=== PATIENT | male | born 1980 | race Caucasian/White ===

== ENCOUNTER 2019-08-11 13:06 | Emergency (ER) | payer SELFPAY ==
[2019-08-11] MEDS ORDERED: Lorazepam 2 MG/ML VIAL ONE (13:21)
[2019-08-11 13:26] LABS: #Basophils 0.1 thou/uL (0.0-0.2); #Eosinphils 0.1 thou/uL (0.0-0.7); #Lymphocytes 2.3 thou/uL (1.20-3.40); #Monocytes 1.2 thou/uL (0.11-0.59); #Neutrophils 8.8 thou/uL (1.40-6.50); %Basophils 0.9 % (0.0-1.0); %Eosinophils 0.9 % (0.0-10.0); %Monocytes 9.8 % (0.0-10.0); %Neutrophils 70.4 % (42.0-75.0); Hemoglobin 16.5 g/dL (14.0-18.0); Mean Corpuscular HGB CONC 33.2 g/dL (32.0-36.0); Mean Corpuscular Hemoglobin 29.4 pg (27.0-31.0); Mean Corpuscular Volume 88.7 fL (78.0-98.0); Mean Platelet Volume 7.1 fL (7.4-10.4); Platelet Count 355 thou/uL (130-400); RBC Distribution Width 10.6 % (11.5-14.5); Red Blood Cell (RBC) Count 5.61 mill/uL (4.70-6.10); White Blood Cell (WBC) Count 12.5 thou/uL (4.8-10.8)
[2019-08-11 13:30] LABS: RBC Morphology Normal
[2019-08-11 13:40] LABS: Acetaminophen Less than 6.0 mcg/mL (10.0-30.0); Alcohol Less than 10 mg/dL (Less than 10); Salicylate Less than 8.0 mg/dL (15.0-30.0)
[2019-08-11 13:42] LABS: ALT (SGPT) 51 U/L (8-55); AST (SGOT) 63 U/L (5-34); Albumin 4.5 g/dL (3.5-5.0); Alkaline Phosphatase 132 U/L (40-110); Anion Gap 16 mmol/L (10-20); BUN (Urea Nitrogen) 20 mg/dL (8.9-20.6); Bilirubin, Total 0.6 mg/dL (0.2-1.2); Calc. Creatinine Clearance 0 mL/min (70-130); Calcium 9.5 mg/dL (7.8-10.44); Carbon Dioxide 26 mmol/L (22-29); Chloride 103 mmol/L (98-107); Estimated GFR-MDRD 83; Globulin 2.8 g/dL (2.4-3.5); Glucose 119 mg/dL (70-105); Lipase 882 U/L (8-78); Potassium 4.6 mmol/L (3.5-5.1); Protein, Total 7.3 g/dL (6.0-8.3); Sodium 140 mmol/L (136-145)
[2019-08-11 14:20] LABS: Bilirubin Negative (Negative); Blood, Urine Negative (Negative); Clarity Clear (Clear); Glucose, Urine (Dipstick) Negative (Negative); Leukocyte Negative (Negative); Nitrite Negative (Negative); Protein, Urine (Dipstick) Negative (Neg-Trace); Urobilinogen 0.2 mg/dL (Less than 2)
--- NOTE | 2019-08-11 14:27 | CT ---
CT Abdomen Pelvis WO Con History: Abdominal pain. Pancreatitis Comparison: CT abdomen pelvis April 2011 Findings: Lung bases are clear. No pericardial effusion. There is cholelithiasis without cholecystiti s. Mild dilatation of the renal calyces and renal pelvis to the ureterovesicular junction versus uretera l size is within normal. No obstructing ureteral calculus. Punctate right superior renal calculus. 2 x 2 mm right inferior renal calculus. There is a to a 2 mm calculus interpolar left kidney. 2 x 3 mm calculus superior pole left kidney. 5 x 2 mm calculus versus 2 closely adjoining smaller calculi inferior pole left renal collecting system. No acute osseous abnormality. No dilated loops of large or small bowel. Noncontrast evaluation of the spleen, pancreas, adrenal glands are unremarkable. Impression: 1. Cholelithiasis without evidence of cholecystitis. 2. Evidence of chronic left UPJ obstruction with mild dilatation of the left renal collecting system including the pelvis and calyces. 3. Nonobstructive bilateral renal calculi. No ureteral calculus.
[2019-08-11 14:33] LABS: Amphetamine Detected (NotDetected); Barbiturates Screen Not Detected (NotDetected); Benzodiazepine Screen Not Detected (NotDetected); Cocaine Metabolite Screen Not Detected (NotDetected); Medtox Control Line Valid? VALID (VALID); Methadone Not Detected (NotDetected); Methamphetamine Not Detected (NotDetected); Opiate Screen Detected (NotDetected); Oxycodone Screen Not Detected (NotDetected); Phencyclidine (PCP) Not Detected (NotDetected); THC/Cannabinoid Screen Detected (NotDetected); Tricyclic Screen Not Detected (NotDetected)
[2019-08-11] MEDS ORDERED: Fentanyl 100 MCG/2 ML VIAL ONE (15:01)
[2019-08-11 19:24] LABS: #Basophils 0.1 thou/uL (0.0-0.2); #Eosinphils 0.1 thou/uL (0.0-0.7); #Lymphocytes 2.5 thou/uL (1.20-3.40); #Monocytes 0.7 thou/uL (0.11-0.59); %Basophils 1.5 % (0.0-1.0); %Eosinophils 1.1 % (0.0-10.0); %Lymphocytes 33.5 % (21.0-51.0); %Monocytes 9.7 % (0.0-10.0); %Neutrophils 54.3 % (42.0-75.0); Hemoglobin 15.4 g/dL (14.0-18.0); Mean Corpuscular HGB CONC 33.2 g/dL (32.0-36.0); Mean Corpuscular Hemoglobin 29.6 pg (27.0-31.0); Mean Corpuscular Volume 89.4 fL (78.0-98.0); Platelet Count 306 thou/uL (130-400); White Blood Cell (WBC) Count 7.4 thou/uL (4.8-10.8)
[2019-08-11 19:34] LABS: ALT (SGPT) 99 U/L (8-55); AST (SGOT) 92 U/L (5-34); Albumin 3.7 g/dL (3.5-5.0); Alkaline Phosphatase 120 U/L (40-110); Anion Gap 10 mmol/L (10-20); BUN (Urea Nitrogen) 15 mg/dL (8.9-20.6); Bilirubin, Total 0.8 mg/dL (0.2-1.2); Calc. Creatinine Clearance 0 mL/min (70-130); Calcium 8.3 mg/dL (7.8-10.44); Carbon Dioxide 27 mmol/L (22-29); Chloride 106 mmol/L (98-107); Estimated GFR-MDRD Greater than 90; Globulin 2.4 g/dL (2.4-3.5); Glucose 94 mg/dL (70-105); Lipase 273 U/L (8-78); Potassium 4.1 mmol/L (3.5-5.1); Protein, Total 6.1 g/dL (6.0-8.3); Sodium 139 mmol/L (136-145)
== END 2019-08-11 19:45 | disposition left against medical advice (07) ==
LOC: BURERS 13:06
DX: K85.10 Biliary acute pancreatitis without necrosis or infection (principal); Z79.899 Other long term (current) drug therapy
CPT/HCPCS: 74176; 80053; 80306; 80307; 81003; 82550; 83690; 84484; 85025; 93005; 96361; 96374; 96375; J2060; J3010